=== PATIENT | male | born 1960 | race Asian ===

== ENCOUNTER 2020-07-28 12:30 | Inpatient (IN) | payer BC, OTHER ==
[~2020-07-28] VITALS: Ht 165.1 cm; Wt 62.5 kg
--- NOTE | 2020-07-28 13:10 | NUR ---
SIOBHAN CHAVEZ WAS IN TO SEE PT. PT SPEAKS SOME ROMANSH; FAMILY ALSO TRANSLATING FOR PT. PT NOT RESPONDING APPROPRIATELY AT THIS TIME. WHEN ASKED, "WHAT IS YOUR NAME?", PT STATES, "YEAH I KNOW HIM." FAMILY STATES PT IS NORMALLY OX4, HAS BEEN CONFUSED SINCE SUNDAY. ABD PAIN/DIARRHEA ON SUNDAY. PT IN NO OBVIOUS DISTRESS AT THIS TIME.
[2020-07-28] MEDS ORDERED: SODIUM CHLORIDE FLUSH 10ML SYR IVF ONE (13:30)
--- NOTE | 2020-07-28 13:36 | NUR ---
PT TO CT VIA [facility].
[2020-07-28 13:44] LABS: BASOPHILS % (AUTO) 0 % (0-1); EOSINOPHILS % (AUTO) 0 % (1-7); LYMPHOCYTES % (AUTO) 19 % (22-44); MEAN CORPUSCULAR HEMOGLOBIN 31.5 pg (27.5-34.5); MEAN CORPUSCULAR HGB CONC 33.6 g/dL (33.2-36.2); MEAN PLATELET VOLUME 8.2 fL (7.4-10.4); MONOCYTES % (AUTO) 5 % (2-9); NEUTROPHILS % (AUTO) 75 % (42-75); PLATELET COUNT 223 x10^3/uL (130-400); RED BLOOD COUNT 4.21 x10^6/uL (4.38-5.82); RED CELL DISTRIBUTION WIDTH 12.9 % (9.4-14.8)
[2020-07-28 13:47] LABS: MD NO
[2020-07-28 13:52] LABS: HCT (SEDRATE) 38.8 % (39.2-51.8)
[2020-07-28 13:53] LABS: ALBUMIN 3.7 g/dL (3.4-5.0); ANION GAP 8 mmol/L (5-15); CALCIUM 9.7 mg/dL (8.5-10.1); CHLORIDE 104 mmol/L (98-107)
[2020-07-28 13:58] LABS: CREATININE 1.13 mg/dL (0.7-1.3)
[2020-07-28 13:59] LABS: ALANINE AMINOTRANSFERASE 103 U/L (12-78); ALKALINE PHOSPHATASE 101 U/L (45-117); BILIRUBIN,TOTAL 0.8 mg/dL (0.2-1.0); FREE T4 (FREE THYROXINE) 2.19 ng/dL (0.76-1.46); TOTAL PROTEIN 7.8 g/dL (6.4-8.2); TROPONIN I < 0.015 ng/mL (0.000-0.045)
--- NOTE | 2020-07-28 14:16 | NUR ---
ASSISTED PT TO BR VIA WC WITH . PT NOT ALWAYS FOLLOWING DIRECTIONS EASILY. CLEAN CATCH URINE SAMPLE OBTAINED. NEUROLOGIST SPEAKING WITH FAMILY & PT VIA VIDEO CONFERENCE CALL.
[2020-07-28 14:32] LABS: MICROSCOPIC NOT IND
[2020-07-28 14:58] LABS: AMPHETAMINE SCREEN, URINE Negative (Negative); BARBITURATE SCREEN, URINE Negative (Negative); BENZODIAZEPINE SCREEN, URINE Negative (Negative); CANNABINOID SCREEN, URINE Negative (Negative); COCAINE SCREEN, URINE Negative (Negative); METHADONE SCREEN, URINE Negative (Negative); OPIATE SCREEN, URINE Negative (Negative)
--- NOTE | 2020-07-28 15:00 | NUR ---
PT TO MRI VIA [facility].
[2020-07-28] MEDS ORDERED: GADOTERATE 7.5 MMOL/15 ML SYR ONE (15:36)
--- NOTE | 2020-07-28 15:46 | NUR ---
PT RETURNS FROM MRI. RV'WD POC WITH PT AND .
[2020-07-28] MEDS ORDERED: ACETAMINOPHEN 325 MG TABLET PO PRN (19:00)
[2020-07-28] MEDS ORDERED: ONDANSETRON 2MG/ML, 2ML IVPush PRN (19:00)
[2020-07-28] MEDS ORDERED: ENALAPRILAT 1.25 MG/ML, 2ML IVPush PRN (19:00)
[2020-07-28] MEDS ORDERED: DOCUSATE 100 MG CAPSULE PO PRN (19:00)
[2020-07-28] MEDS ORDERED: BISACODYL 10 MG SUPP PR PRN (19:00)
[2020-07-28] MEDS ORDERED: ONDANSETRON ODT 4 MG PO PRN (19:00)
[2020-07-28] MEDS ORDERED: OMNIPAQUE 350 MG/ML, 100ML BOTTLE ONE (20:27)
[2020-07-28] MEDS: CEFTRIAXONE PMX 2GM/50ML 50 ML IVPB SCH (20:45)
[2020-07-28] MEDS: INSULIN LISPRO 100 UNITS/ML, PEN SQ-INSULIN SCH (21:00)
[2020-07-28] MEDS: ENOXAPARIN 40 MG/0.4 ML SQ SCH (22:29)
[2020-07-28] MEDS: ATORVASTATIN 40 MG TABLET PO SCH (22:29)
[2020-07-28] MEDS: MELATONIN 5 MG TABLET PO SCH (22:29)
[2020-07-28] MEDS: LACTATED RINGERS 1,000 ML IV SCH (22:29)
[2020-07-29] MEDS: LACTATED RINGERS 1,000 ML IV SCH ×2 (02:00→09:31)
[2020-07-29 02:26] VITALS: BP 113/71
[2020-07-29 05:44] LABS: BASOPHILS % (AUTO) 0 % (0-1); EOSINOPHILS % (AUTO) 1 % (1-7); LYMPHOCYTES % (AUTO) 35 % (22-44); MEAN CORPUSCULAR HEMOGLOBIN 31.5 pg (27.5-34.5); MEAN CORPUSCULAR HGB CONC 33.3 g/dL (33.2-36.2); MEAN PLATELET VOLUME 8.2 fL (7.4-10.4); MONOCYTES % (AUTO) 8 % (2-9); NEUTROPHILS % (AUTO) 56 % (42-75); PLATELET COUNT 206 x10^3/uL (130-400); RED BLOOD COUNT 3.97 x10^6/uL (4.38-5.82); RED CELL DISTRIBUTION WIDTH 12.5 % (9.4-14.8)
[2020-07-29 05:52] LABS: MD NO
[2020-07-29 05:57] LABS: CALCIUM 9.7 mg/dL (8.5-10.1); CHLORIDE 107 mmol/L (98-107)
[2020-07-29 06:26] LABS: ALANINE AMINOTRANSFERASE 85 U/L (12-78); ALBUMIN 3.2 g/dL (3.4-5.0); ALKALINE PHOSPHATASE 85 U/L (45-117); ANION GAP 9 mmol/L (5-15); BILIRUBIN,TOTAL 0.9 mg/dL (0.2-1.0); C-REACTIVE PROTEIN, QUANT 0.89 mg/dL (0.02-0.49); CHOL/HDL RATIO 2.5; CHOLESTEROL, TOTAL 140 mg/dL (140-239); CREATININE 1.39 mg/dL (0.7-1.3); FREE T4 (FREE THYROXINE) 2.16 ng/dL (0.76-1.46); HDL CHOL % 39 % (26-37); HDL CHOLESTEROL (DIRECT) 55 mg/dL (40-60); LDL CHOLESTEROL,CALCULATED 58 mg/dL (54-169); LDL/HDL RATIO 1.1 (0.5-3.0); TRIGLYCERIDES 133 mg/dL (50-200); VLDL CHOLESTEROL 27 mg/dL (0-25)
[2020-07-29] MEDS: INSULIN LISPRO 100 UNITS/ML, PEN SQ-INSULIN SCH ×4 (07:00→20:31)
[2020-07-29 08:10] VITALS: BP 110/64
[2020-07-29] MEDS: PANTOPRAZOLE 40MG TABLET PO SCH (08:21)
[2020-07-29] MEDS: CEFTRIAXONE PMX 2GM/50ML 50 ML IVPB SCH ×2 (08:21→20:31)
[2020-07-29] MEDS: ASPIRIN 81 MG TABLET CHEW PO SCH (09:31)
[2020-07-29 12:50] LABS: MICROSCOPIC NOT IND
[2020-07-29 13:51] VITALS: BP 111/61
[2020-07-29] MEDS: MELATONIN 5 MG TABLET PO SCH (20:30)
[2020-07-29] MEDS: ATORVASTATIN 40 MG TABLET PO SCH (20:30)
[2020-07-29] MEDS: ENOXAPARIN 40 MG/0.4 ML SQ SCH (20:31)
[2020-07-30 01:20] VITALS: BP 136/71
[2020-07-30 04:49] LABS: ALBUMIN 3.3 g/dL (3.4-5.0); ANION GAP 9 mmol/L (5-15); BASOPHILS % (AUTO) 0 % (0-1); CALCIUM 9.3 mg/dL (8.5-10.1); CHLORIDE 108 mmol/L (98-107); EOSINOPHILS % (AUTO) 1 % (1-7); LYMPHOCYTES % (AUTO) 23 % (22-44); MD NO; MEAN CORPUSCULAR HEMOGLOBIN 31.5 pg (27.5-34.5); MEAN CORPUSCULAR HGB CONC 33.5 g/dL (33.2-36.2); MEAN PLATELET VOLUME 8.3 fL (7.4-10.4); MONOCYTES % (AUTO) 9 % (2-9); NEUTROPHILS % (AUTO) 66 % (42-75); PLATELET COUNT 210 x10^3/uL (130-400); RED BLOOD COUNT 3.98 x10^6/uL (4.38-5.82); RED CELL DISTRIBUTION WIDTH 12.5 % (9.4-14.8)
[2020-07-30 04:53] LABS: ALANINE AMINOTRANSFERASE 90 U/L (12-78); ALKALINE PHOSPHATASE 83 U/L (45-117); BILIRUBIN,TOTAL 0.8 mg/dL (0.2-1.0); CREATININE 1.12 mg/dL (0.7-1.3); TOTAL PROTEIN 7.3 g/dL (6.4-8.2)
[2020-07-30] MEDS: INSULIN LISPRO 100 UNITS/ML, PEN SQ-INSULIN SCH ×4 (07:00→20:42)
[2020-07-30 07:26] VITALS: BP 136/74
[2020-07-30] MEDS: PANTOPRAZOLE 40MG TABLET PO SCH (08:51)
[2020-07-30] MEDS: CLOPIDOGREL 75 MG TABLET PO SCH (08:51)
[2020-07-30] MEDS: ASPIRIN 81 MG TABLET CHEW PO SCH (08:51)
[2020-07-30 11:40] LABS: CHOL/HDL RATIO 2.6; LDL/HDL RATIO 1.2 (0.5-3.0)
[2020-07-30 12:14] VITALS: BP 153/73
[2020-07-30] MEDS: LACTATED RINGERS 1,000 ML IV SCH (13:48)
[2020-07-30 18:32] VITALS: BP 152/81
[2020-07-30] MEDS: MELATONIN 5 MG TABLET PO SCH (20:46)
[2020-07-30] MEDS: ENOXAPARIN 40 MG/0.4 ML SQ SCH (20:46)
[2020-07-30] MEDS: ATORVASTATIN 40 MG TABLET PO SCH (20:46)
[2020-07-31 01:18] VITALS: BP 145/76
[2020-07-31 04:28] LABS: ANION GAP 7 mmol/L (5-15); CALCIUM 9.2 mg/dL (8.5-10.1); CHLORIDE 108 mmol/L (98-107)
[2020-07-31 06:39] VITALS: BP 146/73
[2020-07-31] MEDS: CLOPIDOGREL 75 MG TABLET PO SCH (09:15)
[2020-07-31] MEDS: PANTOPRAZOLE 40MG TABLET PO SCH (09:15)
[2020-07-31] MEDS: INSULIN LISPRO 100 UNITS/ML, PEN SQ-INSULIN SCH (09:15)
[2020-07-31] MEDS: ASPIRIN 81 MG TABLET CHEW PO SCH (09:15)
[2020-07-31 14:39] VITALS: BP 169/83
[2020-07-31] MEDS ORDERED: metFORMIN 500 MG TABLET PO SCH (17:00)
[2020-07-31 19:02] VITALS: BP 165/82
[2020-07-31] MEDS: MELATONIN 5 MG TABLET PO SCH (20:10)
[2020-07-31] MEDS: ATORVASTATIN 40 MG TABLET PO SCH (20:10)
[2020-07-31] MEDS: ENOXAPARIN 40 MG/0.4 ML SQ SCH (20:11)
[2020-08-01 00:53] VITALS: BP 141/75
[2020-08-01 05:09] LABS: CHLORIDE 107 mmol/L (98-107)
[2020-08-01 05:15] LABS: ANION GAP 7 mmol/L (5-15); CALCIUM 9.6 mg/dL (8.5-10.1); CREATININE 1.13 mg/dL (0.7-1.3)
[2020-08-01 07:42] VITALS: BP 152/71
[2020-08-01] MEDS ORDERED: DIPHENHYDRAMINE 25 MG CAPSULE PO PRN (09:30)
[2020-08-01] MEDS: ASPIRIN 81 MG TABLET CHEW PO SCH (09:58)
[2020-08-01] MEDS: CLOPIDOGREL 75 MG TABLET PO SCH (09:59)
[2020-08-01] MEDS: PANTOPRAZOLE 40MG TABLET PO SCH (09:59)
[2020-08-01 12:30] VITALS: BP 134/72
[2020-08-01] MEDS: metFORMIN 500 MG TABLET PO SCH (17:00)
[2020-08-01 20:00] VITALS: BP 149/74
[2020-08-01] MEDS: ATORVASTATIN 40 MG TABLET PO SCH (21:38)
[2020-08-01] MEDS: MELATONIN 5 MG TABLET PO SCH (21:38)
[2020-08-01] MEDS: ENOXAPARIN 40 MG/0.4 ML SQ SCH (21:39)
[2020-08-02 02:08] VITALS: BP 128/72
[2020-08-02 06:40] VITALS: BP 146/69
[2020-08-02] MEDS: ASPIRIN 81 MG TABLET CHEW PO SCH (08:10)
[2020-08-02] MEDS: metFORMIN 500 MG TABLET PO SCH ×2 (08:11→16:08)
[2020-08-02] MEDS: PANTOPRAZOLE 40MG TABLET PO SCH (08:11)
[2020-08-02] MEDS: CLOPIDOGREL 75 MG TABLET PO SCH (08:11)
[2020-08-02 12:04] VITALS: BP 155/70
[2020-08-02 18:16] VITALS: BP 159/91
[2020-08-02] MEDS: MELATONIN 5 MG TABLET PO SCH (20:28)
[2020-08-02] MEDS: ATORVASTATIN 40 MG TABLET PO SCH (20:28)
[2020-08-02] MEDS: ENOXAPARIN 40 MG/0.4 ML SQ SCH (20:28)
[2020-08-03 00:29] VITALS: BP 139/85
[2020-08-03 06:18] VITALS: BP 163/80
[2020-08-03] MEDS: ASPIRIN 81 MG TABLET CHEW PO SCH (08:35)
[2020-08-03] MEDS: metFORMIN 500 MG TABLET PO SCH (08:36)
[2020-08-03] MEDS: CLOPIDOGREL 75 MG TABLET PO SCH (08:36)
[2020-08-03] MEDS: PANTOPRAZOLE 40MG TABLET PO SCH (08:36)
[2020-08-03 12:09] VITALS: BP 153/77
[2020-08-03] MEDS ORDERED: CLOP75TA PO (13:00)
[2020-08-03] MEDS ORDERED: AMLO5TAB4 PO (13:00)
[2020-08-03] MEDS ORDERED: ASPI-515 PO (13:00)
[2020-08-03] MEDS ORDERED: EMPA25TA PO (13:00)
[2020-08-03] MEDS ORDERED: METF500T17 PO (13:00)
[2020-08-03] MEDS ORDERED: ATOR40TA78 PO (13:00)
== END 2020-08-03 14:40 | DRG 64 ==
LOC: ED 13:24 → EDIP 14:05 → SUATTDRO 14:17 → 4WST 16:09
PROVIDERS: ADMIT Hospitalist; ATTEND Hospitalist
PROC: 0T9B70Z Drainage of Bladder with Drainage Device, Via Natural or Artificial Opening (ICD-10-PCS; principal; 2020-07-28)
DX: I63.512 Cerebral infarction due to unspecified occlusion or stenosis of left middle cerebral artery (principal); N17.0 Acute kidney failure with tubular necrosis; G93.40 Encephalopathy, unspecified; E87.1 Hypo-osmolality and hyponatremia; R47.01 Aphasia; E11.9 Type 2 diabetes mellitus without complications; E78.00 Pure hypercholesterolemia, unspecified; E78.5 Hyperlipidemia, unspecified; N40.0 Benign prostatic hyperplasia without lower urinary tract symptoms; Z79.02 Long term (current) use of antithrombotics/antiplatelets; Z79.82 Long term (current) use of aspirin; Z79.84 Long term (current) use of oral hypoglycemic drugs; Z79.899 Other long term (current) drug therapy; Z82.49 Family history of ischemic heart disease and other diseases of the circulatory system; Z83.3 Family history of diabetes mellitus; Z86.73 Personal history of transient ischemic attack (TIA), and cerebral infarction without residual deficits; I10 Essential (primary) hypertension; E05.90 Thyrotoxicosis, unspecified without thyrotoxic crisis or storm
CPT/HCPCS: 36415; 70450; 70496; 70498; 70553; 71046; 80048; 80053; 80061; 80307; 81003; 82140; 82607; 82962; 83036; 83735; 84100; 84145; 84439; 84443; 84481; 84484; 85025; 85651; 86140; 87040; 93005; 93306; 99285; G0378; J0696; J1650; Q9967; 92522-GN; A9575; J1815; J7120